=== PATIENT | male | born 1965 | race Caucasian/White ===

== ENCOUNTER 2018-08-04 07:18 | Day surgery (SDC) | payer BC ==
[~2018-08-04] VITALS: Ht 188 cm; Wt 109.3 kg
[2018-08-04] VITALS (11 sets, daily range): BP systolic 87–137; BP diastolic 65–87; PULSE 48–60; TEMP 98.3
[2018-08-04 07:50] LABS: HEMATOCRIT 43.4 % (42.0-52.0); HEMOGLOBIN 14.7 g/dl (13.5-18.0); MEAN CELL VOLUME 90 fl (80.0-100.0); MEAN CORPUSCULAR HEMOGLOBIN 31 pg (27.0-31.0); MEAN CORPUSCULAR HGB CONC 34 g/dl (33.0-37.0); PLATELET COUNT 261 K/mm3 (130-400); RED BLOOD COUNT 4.81 M/mm3 (4.20-5.60); REDCELL DISTRIBUTION WIDTH-CV 12.5 % (11.5-14.5)
[2018-08-04 07:56] LABS: PROTHROMBIN TIME 11.4 SECONDS (9.7-12.8)
[2018-08-04] MEDS ORDERED: PRINIVIL10 MG PO (07:57)
[2018-08-04] MEDS ORDERED: ZEBETA 5MG5 MG PO (07:58)
[2018-08-04] MEDS ORDERED: ASPIRIN E.C. 8181 MG PO (07:58)
[2018-08-04 07:59] LABS: CALCIUM 8.8 mg/dL (8.4-10.2); CREATININE, serum 0.99 mg/dL (0.66-1.25); POTASSIUM 4.3 mmol/L (3.4-5.0)
--- NOTE | 2018-08-04 10:28 | NUR ---
ALL MEDS GIVEN VIA VERBAL WITH READBACK. SEE MERGE FOR ADMIN TIMES. ALLENS TEST POSITIVE.
[2018-08-04] MEDS ORDERED: PLAVIX 75MG TAB75 MG PO (10:38)
--- NOTE | 2018-08-04 13:45 | NUR ---
Discharge instructions reviewed with pt/spouse. Pt/spouse voice understanding. Pt voiding with no complications. Pt tolerating intake with no N/V. Pt was discharged via wheelchair to the care of spouse in private vehicle with discharge instructions in hand.
== END 2018-08-04 13:50 | disposition home or self-care (01) ==
LOC: COL.CAR 07:18
PROVIDERS: Internal Medicine Cardiovascular Disease
DX: I20.0 Unstable angina (principal); R94.39 Abnormal result of other cardiovascular function study; I10 Essential (primary) hypertension; E78.00 Pure hypercholesterolemia, unspecified; Z82.49 Family history of ischemic heart disease and other diseases of the circulatory system
CPT/HCPCS: C1769; J1644; J2250; J3010; Q9967